=== PATIENT | female | born 1955 | race Caucasian/White ===

== ENCOUNTER → 2017-02-22 | Outpatient (CLI) | payer OTHER | LOC: RAD 16:18 | DX: M19.071 Primary osteoarthritis, right ankle and foot (principal) ==

== ENCOUNTER → 2017-03-22 | Outpatient (CLI) | payer OTHER | LOC: RAD 16:29 | DX: M79.671 Pain in right foot (principal) ==

== ENCOUNTER → 2017-04-05 | Outpatient (CLI) | payer OTHER | LOC: RAD 04:02 | DX: Z12.31 Encounter for screening mammogram for malignant neoplasm of breast (principal) ==

== ENCOUNTER → 2017-05-17 | Outpatient (CLI) | payer OTHER ==
[~2017-05-17] VITALS: Ht 165.1 cm; Wt 140.6 kg
[~2017-05-17] MED LIST: BUMETANIDE2 M1 PO; CLARITIN10 MG PO; ETODOLAC 400 M400 M1 PO; GLIPIZIDE 10 MG10 MG PO; GLUCOPHAGE1000 MG PO; KLOR-CON 1010 MEQ PO; LANTUS SUBQ; MAGNESIUM250 M1 PO; NEURONTIN600 MG PO; PLAVIX 75 MG TA75 M1 PO; PROAIR HFA8.5 GM; TOPAMAX50 MG PO; ZOCOR80 MG PO
[2017-05-17 08:39] VITALS: BP 129/69
== END ==
LOC: PAIN 03-29 07:12
DX: M54.2 Cervicalgia (principal); M25.872 Other specified joint disorders, left ankle and foot

== ENCOUNTER → 2017-06-20 | Outpatient (CLI) | payer OTHER ==
[~2017-06-20] VITALS: Ht 165.1 cm; Wt 142.9 kg
[~2017-06-20] MED LIST changes: -PROAIR HFA8.5 GM; +PROAIR HFA8.5 GM INH
--- NOTE | ~2017-06-20 | O ---
[facility] [place] [address] OPERATIVE REPORT Name: VICENTA HARDING Room #: REG [facility] Konstantin.#: [id number] Admission: 06/20/17 Attend Phys: Rober Coronel MD, Discharge: Date of : 51 Report #: [id number] THIS REPORT FOR: //name// CC: Kayla Coronel DATE OF SERVICE: 06/20/2017 PREOPERATIVE DIAGNOSES: 1. Indwelling lap band. 2. Dysphagia. 3. Gastroesophageal reflux disease. 4. Diabetes mellitus. 5. Hypertension. 6. Hypercholesterolemia. 7. Morbid obesity with a BMI of 52.49. POSTOPERATIVE DIAGNOSES: 1. Indwelling lap band. 2. Dysphagia. 3. Gastroesophageal reflux disease. 4. Diabetes mellitus. 5. Hypertension. 6. Hypercholesterolemia. 7. Morbid obesity with a BMI of 52.49. 8. A small hiatal hernia. 9. Mild esophagitis. 10. Observed malpositioning and slipping of indwelling lap band. PROCEDURE PERFORMED: Thorough esophagogastroduodenoscopy (EGD). SURGEON: Rober Coronel M.D. GARAGE DOOR INSTALLER: None. ANESTHESIA: Monitored anesthesia care. ESTIMATED BLOOD LOSS: None. COMPLICATIONS: None. SPECIMENS: None. INDICATIONS: The patient is a 61-year-old morbidly obese female who has undergone placement of a lap band in her past, whereby she had initial weight loss; however, has developed significant weight regain as well as the [facility] [place] [address] OPERATIVE REPORT Name: VICENTA HARDING Room #: REG [facility]..#: [id number] Admission: 06/20/17 Attend Phys: Rober Coronel MD, Discharge: Date of : 51 Report #: [id number] onset of dysphagia over the past several months. The patient's lap band is completely deflated and yet she continues with intermittent issues whereby she feels that she cannot swallow. Indication therefore was for EGD today with findings of a malpositioned lap band residing too cephalad as well as observed slipping and a small hiatal hernia. DESCRIPTION OF PROCEDURE: After explaining the risks, benefits and alternatives of the procedure with the patient and obtaining consent, the patient was brought to the endoscopy suite, placed in the left lateral decubitus position on the hospital bed. After conducting a thorough timeout procedure verifying correct patient and procedure, she was given monitored anesthesia care. Once adequate anesthesia was obtained, the [employer] upper endoscope was used to intubate the oropharynx. This was advanced into the esophagus with ease where it was traversed down past the gastroesophageal juncture and I had some difficulty navigating through the indwelling lap band. Ultimately, when I was able to arrive within the gastric lumen, I intubated the pylorus. The scope was advanced to the second portion of the duodenum where slow careful withdrawal of the EGD scope showed no evidence of duodenitis, gastritis, mass lesions or ulcerations. A retroflexion view of the scope within the gastric lumen showed a small hiatal hernia at the level of the gastroesophageal juncture and the extrinsic compression from the lap band was seen to reside too cephalad to where it was nearly on the gastroesophageal juncture. The patient did lighten from anesthesia during the course of the procedure on purpose and as such with abdominal contractions I was able to see craniocaudal movement of the lap band consistent with a slipping and malpositioned lap band. The scope was straightened out in the gastric lumen and was withdrawn into the distal esophagus where there was evidence of mild esophagitis, but no evidence of dysplasia was seen. Scope was reintubated into the gastric lumen where the stomach was fully desufflated and the scope was removed and passed off the field completing the procedure. At the end of the procedure all instrument, needle and sponge counts were correct. The patient tolerated the procedure without incident, was awakened in the endoscopy suite and transitioned to the recovery room in stable condition with no apparent complications. <ELECTRONICALLY SIGNED> By: Rober Coronel MD, FACS 06/20/17 1437 [id number] [id number] Rober Coronel MD, FACS /nt
== END | disposition home or self-care (01) ==
LOC: GI 06:35
DX: K95.09 Other complications of gastric band procedure (principal); K21.0 Gastro-esophageal reflux disease with esophagitis; E11.9 Type 2 diabetes mellitus without complications; I10 Essential (primary) hypertension; E78.00 Pure hypercholesterolemia, unspecified; E66.01 Morbid (severe) obesity due to excess calories; Z68.43 Body mass index [BMI] 50.0-59.9, adult; K44.9 Diaphragmatic hernia without obstruction or gangrene; E78.5 Hyperlipidemia, unspecified; G47.33 Obstructive sleep apnea (adult) (pediatric); J45.909 Unspecified asthma, uncomplicated; M79.7 Fibromyalgia; Z98.41 Cataract extraction status, right eye; Z79.899 Other long term (current) drug therapy; Z98.42 Cataract extraction status, left eye; Z98.890 Other specified postprocedural states

== ENCOUNTER → 2017-06-23 | Outpatient (CLI) | payer OTHER ==
[~2017-06-23] VITALS: Ht 165.1 cm; Wt 146.9 kg
[~2017-06-23] MED LIST changes: +FLEXERIL PO; +MOBIC15 MG PO
--- NOTE | ~2017-06-23 | HPC ---
[facility] [address] [place] [address] PAIN MANAGEMENT CONSULTATION Name: HARDINGVICENTA LOUIS Room #: REG [facility].#: [id number] Admission: 06/23/17 Attend Phys: Surinder Bansal MD Discharge: Date of : 51 Report #: [id number] THIS REPORT FOR: //name// CC: Kayla Bansal DATE OF SERVICE: 06/23/2017 FOLLOWUP COMPLAINT: Pain is a 5-6 across the low back today. FOLLOWUP HISTORY: The patient is a 61-year-old female who has been seen in the pain clinic because of low back pain. As you recall, she takes Plavix. She has been experiencing pain in the low back area after a fall. She noticed improvement after the last trigger point injections. She feels that another injection could be helpful. She also feels that physical therapy might be beneficial. She would like to undergo trigger point injections today and follow up with physical therapy. PHYSICAL EXAMINATION: Blood pressure 93/60, pulse 70, respiratory rate 20, room air saturation 97%. Height 5 feet 5 inches, weight 323 pounds. The patient has pain and discomfort in the left and right posterior superior iliac spine area near the posterior superior iliac area and junction of the gluteus almas and latissimus dorsi. IMPRESSION: 1. Myofascial pain in the low back area, status post fall. 2. Diabetes. 3. Obesity, BMI 51. 4. Anemia history. 5. Asthma. 6. Hypertension. 7. Degenerative joint disease/arthritis. RECOMMENDATIONS: We discussed the treatment options with the patient. She has not taken Plavix. She elects to proceed with a trigger point injection to the left and right posterior low back area near the posterior superior iliac spine. PROCEDURE NOTE: The patient was placed in the sitting position. Her back was sterilely prepped with a chlorhexidine solution and allowed to dry. A 22-gauge Chiba a needle was then advanced into the trigger point on the right. After the trigger point was elicited a total of 10 mL of 0.5% bupivacaine and 60 mg of triamcinolone was injected. The contralateral side was treated in a like fashion. A 20-gauge Chiba needle was advanced into the left posterior superior iliac spine area. A total of 60 mg of triamcinolone and 10 mL of 0.5% bupivacaine was injected. The patient's pain decreased from 6 to 3 at the time [address] [address] PAIN MANAGEMENT CONSULTATION Name: VICENTA HARDING HERIBERTO Room #: REG [facility] Ashley#: [id number] Admission: 06/23/17 Attend Phys: Surinder Bansal MD Discharge: Date of : 51 Report #: [id number] of discharge. She will follow up in the future as needed. She will restart her Plavix. We would like to thank you for letting us participate in her care. We hope she continues to improve. By: 1811 [id number] Surinder Bansal MD /CLARK
[2017-06-23 10:44] VITALS: BP 93/60
== END | disposition home or self-care (01) ==
LOC: PAIN 06:47
DX: M79.1 Myalgia (principal); E11.9 Type 2 diabetes mellitus without complications; I10 Essential (primary) hypertension; E66.09 Other obesity due to excess calories; J45.909 Unspecified asthma, uncomplicated; M19.90 Unspecified osteoarthritis, unspecified site; Z86.2 Personal history of diseases of the blood and blood-forming organs and certain disorders involving the immune mechanism; Z68.43 Body mass index [BMI] 50.0-59.9, adult; Z98.890 Other specified postprocedural states; Z79.899 Other long term (current) drug therapy; Z88.0 Allergy status to penicillin; Z88.6 Allergy status to analgesic agent; Z79.4 Long term (current) use of insulin

== ENCOUNTER 2017-07-28 05:36 | Day surgery (SDC) | payer OTHER ==
[~2017-07-28] VITALS: Ht 165.1 cm; Wt 141.5 kg
--- NOTE | ~2017-07-28 | EKG ---
[address] [address] ELECTROCARDIOGRAM REPORT Name: VICENTA HARDING Room #: 410-P [facility].#: [id number] Admission: 07/28/17 Attend Phys: Rober Coronel MD, Discharge: Date of : 51 Report #: [id number] THIS REPORT FOR: //name// [facility] Test Date: 2017-07-28 Test Time: 09:44:38 Pat Name: VICENTA HARDING Department: Room: 150 4 Gender: F Inbound Customer Service Representative: ETHEL : 1955 Requested By: Rober Coronel Order Number: [id number] MD: Milton Reeves Measurements Intervals [place] Rate: 79 P: 24 MI: 158 QRS: 32 QRSD: 82 T: 29 QT: 399 QTc: 458 Interpretive Statements Sinus rhythm Compared to ECG 12/28/1999 09:19:54 T-wave abnormality no longer present Electronically Signed On 07-29-2017 8:22:35 MANAGER APPLICATION by Milton Reeves [email or web address] <ELECTRONICALLY SIGNED> By: Milton Reeves MD 07/29/17821 Milton Reeves MD /GEETA
--- NOTE | ~2017-07-28 | S ---
[facility] [place] [address] SURGICAL PATH RPT PROCEDURE Name: JULIANE HUI Room #: DEP [facility] Konstantin.#: [id number] Admission: 07/28/17 Date of : 51 Discharge: 07/29/17 Report #: [id number] Path Case #: [id number] PATHOLOGY REPORT COLLECTION DATE: 07/28/2017 RECEIVED DATE: 07/28/2017 SUBMITTING PHYS: Dr. Rober Coronel OTHER PHYS: Dr. Walt Dunaway SPECIMEN(S) RECEIVED: A.Gastric band and port B.Gastric sleeve * * * * * * * * * * * * FINAL DIAGNOSIS: A. "Gastric band and port", removal: - Foreign body consistent with gastric band (gross examination only). - Foreign body consistent with port (gross examination only). - Attached fibrous connective tissue with chronic inflammation. B. "Gastric sleeve", partial gastrectomy: - Gastric mucosa, submucosa and muscular wall with minimal histologic alterations. (CLW:daly; 07/31/2017) PATHOLOGIST: Simona Arshad M.D. REPORT ELECTRONICALLY SIGNED BY: Simona Arshad M.D. DATE/TIME: 07/31/2017 17:03 * * * * * * * * * * * * GROSS PATHOLOGY: A. The specimen is received in formalin, labeled "Juliane Hui and gastric band and port", is a triangular white port at one end 3.0 x 1.5 cm with attached white tubing 42 cm in length with a 0.3 cm diameter, and the opposite end consists of a lap band and inscribed "[facility]". The back of the port is inscribed with "Port-A-Cath" and "M [id number]". There is a 0.5 x 0.4 x 0.3 cm attached yellow-correia fibrous tissue that is entirely submitted in A1. Photographs are taken. B. The specimen is received in formalin, labeled "Juliane Hui and gastric sleeve", is a partial stomach with a staple line margin the specimen measures 23 x 3.5 x 2.5 cm. The serosal surface is correia-white smooth. Opening the segment reveals a correia-red grossly unremarkable mucosa with usual folds and in no discrete lesions or masses. Careers Counsellor sections in B1. (SWS; 07/31/2017) [address] [address] SURGICAL PATH RPT PROCEDURE Name: HUIJULIANE Room #: DEP [facility] Ashley#: [id number] Admission: 07/28/17 Date of : 51 Discharge: 07/29/17 Report #: [id number] Path Case #: [id number] CLINICAL HISTORY: None Provided INITIAL CPT CODE(S): A; 11007, 45589 B; 21579 Professional services performed by [facility] at [address] , [place] [address] Technical services performed by [facility] at [address] [place] [address]., [address], [place] [address]. Kayla Sin [facility] [address] [address] PHONE: [phone] DIRECTOR: Reece Medina M.D. * * * END OF REPORT * * *
--- NOTE | ~2017-07-28 | O ---
[facility] [place] [address] OPERATIVE REPORT Name: VICENTA HARDING Room #: DEP [facility] M.R.#: [id number] Admission: 07/28/17 Attend Phys: Rober Coronel MD, Discharge: 07/29/17 Date of : 51 Report #: [id number] THIS REPORT FOR: //name// CC: Kayla Coronel DATE OF SERVICE: 07/28/2017 PREOPERATIVE DIAGNOSES: 1. Morbid obesity with a body mass index of 52.35. 2. Indwelling laparoscopic band. 3. Dysphagia. 4. Diabetes mellitus. 5. Hypertension. 6. Gastroesophageal reflux disease. 7. Hypercholesterolemia. 8. Lumbago. 9. Bilateral lower extremity joint pain. 10. Snoring disorder with likely sleep apnea. 11. Chronic fatigue. POSTOPERATIVE DIAGNOSES: 1. Morbid obesity with a body mass index of 52.35. 2. Indwelling laparoscopic band. 3. Dysphagia. 4. Diabetes mellitus. 5. Hypertension. 6. Gastroesophageal reflux disease. 7. Hypercholesterolemia. 8. Lumbago. 9. Bilateral lower extremity joint pain. 10. Snoring disorder with likely sleep apnea. 11. Chronic fatigue. 12. Marked intra-abdominal adhesions. 13. Incarcerated incisional ventral hernia. PROCEDURES PERFORMED: 1. Laparoscopic removal of adjustable gastric band and port. 2. Extensive laparoscopic lysis of adhesions. 3. Laparoscopic sleeve gastrectomy. 4. Laparoscopic primary suture repair of an incarcerated incisional ventral hernia. 5. A thorough esophagogastroduodenoscopy (EGD). SURGEON: Rober Coronel MD [facility] [address] [place] [address] OPERATIVE REPORT Name: VICENTA HARDING Room #: DEP [facility]..#: [id number] Admission: 07/28/17 Attend Phys: Rober Coronel MD, Discharge: 07/29/17 Date of : 51 Report #: [id number] BORDER PATROL OFFICER: Walt Dunaway MD ANESTHESIA: General endotracheal anesthesia. ESTIMATED BLOOD LOSS: 100. COMPLICATIONS: None appreciated. SPECIMENS: 1. Lap band and port to pathology. 2. Laparoscopic gastric sleeve resection specimen to pathology. INDICATIONS: The patient is a 62-year-old morbidly obese female who underwent placement of a lap band in the past and initially had good weight loss; however, over the recent past, has had weight regain and worsening dysphagia over the past several months. The patient has had a very long history of obesity and has tried numerous weight loss attempts, all to no avail. The patient underwent an EGD showing a malpositioned lap band with mild esophagitis. She has been evaluated by her primary care physician as well as a dietitian and a psychologist who have all cleared her for revisional bariatric surgery as well as indicating that it is medically necessary for long-term weight loss and resolution of her comorbid conditions. She has undergone several months of diet and exercise plan under my direction with no real weight loss thus far. As such, indication was for the above-mentioned procedures today. PROCEDURE: After explaining the risks, benefits and alternatives of the procedure with the patient in detail in the preoperative holding area and obtaining written consent, the patient was brought to the operating room and placed supine on the operating room table. After conducting a thorough timeout procedure, verifying correct patient and procedure, the patient was given general endotracheal anesthesia. Once adequate anesthesia was obtained, her SCDs were hooked up to pneumatic compression device and she was given a preoperative dose of antibiotics in line with her SCIP protocol. The patient's abdomen was prepped and draped in standard surgical sterile fashion after positioning her in the low lithotomy position with her legs in the Yellofin stirrups. 5 mL of 0.5% Marcaine with epinephrine were used to anesthetize the skin 5 cm cephalad to the umbilicus and 1 cm to the patient's left. A #15 bladed scalpel was used to create a small skin marielena at this location. A 5-mm Visiport was placed over 0-degree 5-mm laparoscope and was introduced through this incision site. Once intra-abdominal placement was verified visually, the obturator for the trocar and laparoscope were both removed and the abdomen was insufflated to 15 mmHg using carbon dioxide gas. The laparoscope was changed to a 5-mm 30-degree laparoscope, which was reintroduced through this trocar. The entire abdomen was evaluated to ensure no injury upon entry. I now proceeded to place a 15 mm trocar in the right upper abdomen 5 cm cephalad to my original incision site as well as 5 cm of the patient's right. This was placed under [address] [address] OPERATIVE REPORT Name: VICENTA HARDING HERIBERTO Room #: DEP [facility] Ashley#: [id number] Admission: 07/28/17 Attend Phys: Rober Coronel MD, Discharge: 07/29/17 Date of : 51 Report #: [id number] direct vision after anesthetizing the skin at that location with 5 mL of 0.5% Marcaine with epinephrine and I had created a 1.5 cm transverse skin incision using a #15 bladed scalpel. I now proceeded to place two additional 5-mm trocars in the left flank, the first being 5-cm lateral to my initially placed port and the final one in the extreme left lateral flank. Again, both were placed under direct vision after anesthetizing the skin at each location with 5 mL of 0.5% Marcaine with epinephrine and I had created small skin nicks using a #15 bladed scalpel. The patient was now placed in steep reverse Trendelenburg position and I proceeded to place a Jada liver retractor in subxiphoid location. This was placed by anesthetizing the skin at that location with 5 mL of 0.5% Marcaine with epinephrine and I had created a small skin marielena using a #15 bladed scalpel. I maneuvered the Jada retractor through this defect where it was positioned up under the left lobe of the liver and was held up against the posterior aspect of the anterior abdominal wall. This was then fixed into position using the iron purchasing internship device to stabilize it. We now had complete access to the stomach and hiatal region including the lap band, which was malrotated with the tubing coming off anterior as well as plastered to the underside of the left lobe of the liver. We now carried out an extensive laparoscopic lysis of adhesions using a combination of Harmonic scalpel and EndoShears dissection. Ultimately, we were able to free the caudate lobe of the liver as well as the entire esophageal hiatus from the lap band scarring. I was able to reposition the Jada under the entire left lobe of the liver for further exposure. Once I had opened the scar capsule around the lap band on the anterior aspect, I was able to unbuckle the lap band itself. I then used EndoShears to cut the lap band on the left lateral aspect and removed both pieces in full after disconnecting the tubing from the port and the lap band itself. Both pieces were then passed off the field leaving just the port in the abdominal wall. I now proceeded to evaluate the gastric tissues. It appeared that the plication sutures had largely come down and that she would be amenable to immediate conversion to a sleeve gastrectomy without risk of increased leak. As such, I proceeded to start my dissection after identifying our landmarks. The vein of Sharif was identified overlying the pylorus. I measured 4-cm proximal to this location and began taking down the short gastric arteries from this location all the way up the greater curvature of the stomach using the Harmonic scalpel for hemostasis. Once I arrived upon the base of the left jody, I dissected anteriorly up the left jody with the Harmonic scalpel for hemostasis coming through significant scar as there appeared to be several sutures of Surgidac tethered in this region. Upon dissecting the greater curvature of the stomach near the left jody, there was evidence of bleeding short gastric artery, which was controlled with laparoscopic clips and Surgicel. The stomach was now flattened out and all gastric anatomy was normalized by taking down the entire lap band tract staying well away from the gastric tissues. Now that I had fully mobilized the stomach, it was elevated and all posterior gastric attachments were taken down again being careful to stay well away from the gastric wall in the anterior aspect of the pancreas. We now positioned the EGD scope using the Lionseekn upper endoscope, I was able to intubate the oropharynx and traverse this [facility] [address] [place] [address] OPERATIVE REPORT Name: MEAGHANVICENTASENTHIL LOUIS Room #: DEP [facility] Ashley#: [id number] Admission: 07/28/17 Attend Phys: Rober Coronel MD, Discharge: 07/29/17 Date of : 51 Report #: [id number] down to the esophagus with ease. This was advanced into the stomach at the level of the pylorus where a retroflexion view was obtained showing no evidence of extrinsic compression and no hiatal hernia. The scope was straightened out with its tip at the level of pylorus, it was positioned to run along the lesser curvature of the stomach and was taped into position with the OG tube removed. I now sterilely reenter the operative field once again. The Deloit 60 mm stapler with a black load utilizing Berumen's Nereida-Strip buttressing material placed over, it was entered into the abdomen through the 15-mm port. This first firing started at the location 4-cm proximal to the pylorus and fired right along, but not extremely tight to the scope, so as not to cause stricturing, especially at the incisura. An additional firing of another black load again utilizing Berumen's Nereida-Strip buttressing material was carried out following the scope as a 34-German bougie. Five firings all of green loads all utilizing Berumen's Nereida-Strip buttressing material were carried out following the scope as a bougie all the way up to the left jody until the stomach was completely transected. The resection specimen was now removed via the 15-mm fascial incision under direct vision and I proceeded to place a fascial closing suture at this location using 0 PDS suture on a Uriah-Inocencia needle under direct vision. This was not tied down, but was tagged with a hemostat and the trocars were placed under direct vision. The staple line was now evaluated. We had complete hemostasis with no evidence of twisting to the sleeve and no oozing from the staple line itself. The left upper quadrant was dry at this juncture with no evidence of ongoing bleeding. I now proceeded to utilize 20 mL of Tisseel on the [employer] device to coat the entirety of the staple line with fibrin glue. Once completely dry, normal saline was instilled into the upper abdomen, the EGD scope was reactivated and gently withdrawn evaluating the staple line from the inside. We saw no evidence of bleeding endoluminally and allowing gentle insufflation, which was then held under the normal saline in the upper abdomen, we saw no evidence of bubbling, thereby signifying a negative leak test. The EGD scope was used to desufflate the stomach, was removed via the oropharynx, passed off the field and I sterilely reentered the operative field once again. All normal saline was suctioned out of the abdomen and it ran clear at this juncture with no swelling and no bleeding. As the Surgicel was placed in the left upper quadrant, I did elect to leave this in place rather than peel it out and start bleeding once again. Now that it was dry in this juncture, I did elect to place FloSeal overlying the Surgicel for assistance with long-term hemostasis. The Jada liver retractor was now removed and the liver was healthy and uninjured. I now closed the 15-mm fascial incision by tying down the suture under direct vision to ensure I did not catch a loop of bowel or omentum in the suture repair. The abdomen was fully desufflated, all remaining trocars were removed under direct vision. I now proceeded to utilize 10 mL of 0.5% Marcaine with epinephrine to inject overlying the port. A #15 bladed scalpel was used to create a 3-cm transverse skin incision at this location. Electrocautery was used to carry this down through skin, subcutaneous tissues and fat until I arrived upon the anterior aspect of the capsule of the lap band port. I was able to free this through dissection and removed the [facility] [address] [place] [address] OPERATIVE REPORT Name: VICENTA HARDING Room #: [facility] M.R.#: [id number] Admission: 07/28/17 Attend Phys: Rober Coronel MD, Discharge: 07/29/17 Date of : 51 Report #: [id number] entire port, passed it off the field. 0 PDS suture was now used in a cujgzp-pa-[id number] fashion to close the fascial defect where the port traversed intraabdominally. It should be noted that upon dissecting, we saw evidence of an incarcerated band of omentum in the abdomen at a site separate to any of our incision sites and upon performing the lysis of adhesions, uncovered an incarcerated incisional hernia. This was sutured closed intracorporeally using the 0 PDS suture and was tied down removing the needle in full, which was then used to close the anterior rectus fascial defect after port explantation. A 4-0 Monocryl was now used in a standard subcuticular fashion for all skin incisions and Dermabond glue was applied to all skin wounds. The corner of the resection specimen had been removed, was trimmed away and normal saline was passively instilled into the resection specimen yielding 1400 mL in the resection specimen itself. At the end of the procedure, all instrument, needle, and sponge counts were correct. The patient tolerated the procedure without incident, was awakened in the operating room and transitioned to the recovery room in stable condition with no apparent complications. <ELECTRONICALLY SIGNED> By: Rober Coronel MD, FACS 07/31/17 0810 1509 1735 Rober Coronel MD, FACS /nt
[2017-07-28 09:45] VITALS: BP 119/89
[2017-07-28 10:26] LABS: CALCIUM 9.8 mg/dL (8.5-10.1); CREATININE 1.1 mg/dL (0.6-1.0); POTASSIUM 3.2 mmol/L (3.5-5.1)
[2017-07-28] MEDS ORDERED: ZOFRAN ODT4 MG DISSOLVE (13:22)
[2017-07-28] MEDS ORDERED: HYDROCODONE-ACE15 ML PO (13:22)
[2017-07-28 16:30] VITALS: BP 171/60
[2017-07-28 17:00] VITALS: BP 151/55
[2017-07-28 18:00] VITALS: BP 161/60
[2017-07-28 19:00] VITALS: BP 142/61
[2017-07-28 20:45] VITALS: BP 152/62
[2017-07-29 00:12] VITALS: BP 143/53
[2017-07-29 03:40] LABS: HEMATOCRIT 40.1 % (37.0-47.0); HEMOGLOBIN 13.2 gm/dL (12.0-15.0); MCH 29.7 pg (26.0-34.0); MCHC 32.9 g/dL (28.0-37.0); MCV 90.4 fL (80.0-100.0); RBC 4.43 mil/uL (4.20-5.00); RDW 13.8 % (10.5-14.5); WBC 14.7 thou/uL (4.0-11.0)
[2017-07-29 03:48] LABS: CALCIUM 8.8 mg/dL (8.5-10.1); CREATININE 1.5 mg/dL (0.6-1.0)
[2017-07-29 03:53] LABS: POTASSIUM 4.4 mmol/L (3.5-5.1)
[2017-07-29 05:30] VITALS: BP 146/64
[2017-07-29 08:00] VITALS: BP 141/68
[2017-07-29 11:47] VITALS: BP 141/68
== END 2017-07-29 13:09 | disposition home or self-care (01) ==
LOC: OR 05:36 → TBA 05:36 → OR 10:24 → 4N 16:09 → OR 07-29 13:09
PROVIDERS: Surgery
DX: E66.01 Morbid (severe) obesity due to excess calories (principal); Z68.43 Body mass index [BMI] 50.0-59.9, adult; E11.9 Type 2 diabetes mellitus without complications; I10 Essential (primary) hypertension; K21.9 Gastro-esophageal reflux disease without esophagitis; E78.00 Pure hypercholesterolemia, unspecified; M54.5 Low back pain; R06.83 Snoring; K43.6 Other and unspecified ventral hernia with obstruction, without gangrene; J45.909 Unspecified asthma, uncomplicated; E78.5 Hyperlipidemia, unspecified; M79.7 Fibromyalgia
CPT/HCPCS: 50010; 50101; 50222; 50249; 50386; 50555; 50739; 50740; 50900; 50962; 51297; 51437; 51489; 51751; 52182; 52265; 53307; 53311; 54022; 54118; 55245; 56462; 56525; 56526; 56639; 57092; 62110; 62900; 70005

== ENCOUNTER → 2017-09-25 | Outpatient (CLI) | payer OTHER ==
[~2017-09-25] MED LIST changes: +HYDROCODONE-ACE15 ML PO; +ZOFRAN ODT4 MG DISSOLVE
== END ==
LOC: HYPER 07:11
DX: T21.32XA Burn of third degree of abdominal wall, initial encounter (principal); T32 Corrosions classified according to extent of body surface involved; E11.9 Type 2 diabetes mellitus without complications; I10 Essential (primary) hypertension; M19.90 Unspecified osteoarthritis, unspecified site; K21.9 Gastro-esophageal reflux disease without esophagitis; J45.909 Unspecified asthma, uncomplicated; Z98.41 Cataract extraction status, right eye; X16.XXXA Contact with hot heating appliances, radiators and pipes, initial encounter; Y93.89 Activity, other specified; Y92.89 Other specified places as the place of occurrence of the external cause; Y99.8 Other external cause status

== ENCOUNTER → 2017-10-19 | Outpatient (CLI) | payer OTHER | LOC: HYPER 10-09 07:08 | DX: T21.32XD Burn of third degree of abdominal wall, subsequent encounter (principal); T32 Corrosions classified according to extent of body surface involved; E11.65 Type 2 diabetes mellitus with hyperglycemia; L03.116 Cellulitis of left lower limb; I10 Essential (primary) hypertension; M19.90 Unspecified osteoarthritis, unspecified site; K21.9 Gastro-esophageal reflux disease without esophagitis; J45.909 Unspecified asthma, uncomplicated; X08.8XXD Exposure to other specified smoke, fire and flames, subsequent encounter ==

== ENCOUNTER → 2019-02-27 | Outpatient (CLI) | payer OTHER | LOC: RAD 09:11 | DX: Z12.31 Encounter for screening mammogram for malignant neoplasm of breast (principal) ==

== ENCOUNTER → 2020-03-11 | Outpatient (CLI) | payer OTHER ==
[2020-03-11 14:21] LABS: ALBUMIN 3.6 g/dL (3.4-5.0); CALCIUM 8.7 mg/dL (8.5-10.1); CREATININE 1.3 mg/dL (0.6-1.0); POTASSIUM 4.9 mmol/L (3.5-5.1); TOTAL BILIRUBIN 0.3 mg/dL (0.2-1.0)
[2020-03-12 04:06] LABS: GLYCOHEMOGLOBIN (HGB A1C) 7.2 % (4.8-5.6)
== END ==
LOC: LABMALL 13:46
PROVIDERS: ATTEND Family Medicine
DX: E11.40 Type 2 diabetes mellitus with diabetic neuropathy, unspecified (principal)

== ENCOUNTER → 2020-07-09 | Outpatient (CLI) | payer OTHER ==
[2020-07-09 12:28] LABS: ABSOLUTE NEUTROPHILS 4.7 thou/uL (1.4-8.2); BASOPHILS 0.9 % (0.0-2.0); EOSINOPHILS 4.7 % (0.0-3.0); HEMATOCRIT 41.2 % (37.0-47.0); HEMOGLOBIN 13.5 gm/dL (12.0-15.0); LYMPHOCYTES 27.4 % (24.0-44.0); MCH 29.2 pg (26.0-34.0); MCHC 32.6 g/dL (28.0-37.0); MCV 89.6 fL (80.0-100.0); MONOCYTES 5.7 % (1.0-8.0); PLATELET COUNT 294 thou/uL (150-400); POLYS 61.3 % (36.0-66.0); RDW 12.8 % (10.5-14.5); WBC 7.7 thou/uL (4.0-11.0)
[2020-07-09 12:50] LABS: ALBUMIN 3.3 g/dL (3.4-5.0); ANION GAP 10 mmol/L (7-16); BUN 19 mg/dL (7-18); CALCIUM 9.3 mg/dL (8.5-10.1); CHLORIDE 104 mmol/L (98-107); CHOLESTEROL 196 mg/dL (<200); CO2 29 mmol/L (21-32); GLUCOSE 130 mg/dL (74-106); HDL CHOLESTEROL 65 mg/dL (>40); LDL CHOLESTEROL 118 mg/dL (<100); POTASSIUM 3.9 mmol/L (3.5-5.1); SGOT 18 U/L (15-37); SGPT 21 U/L (30-65); SODIUM 143 mmol/L (136-145); TOTAL BILIRUBIN 0.3 mg/dL (0.2-1.0); TOTAL PROTEIN 6.9 g/dL (6.4-8.2); TRIGLYCERIDE 66 mg/dL (<150); VLDL 13 mg/dL (<40)
[2020-07-10 02:07] LABS: GLYCOHEMOGLOBIN (HGB A1C) 7.6 % (4.8-5.6)
== END ==
LOC: LAB 11:52
PROVIDERS: ATTEND Family Medicine
DX: E11.9 Type 2 diabetes mellitus without complications (principal)

== ENCOUNTER → 2020-11-25 | Outpatient (CLI) | payer OTHER ==
[2020-11-25 09:42] LABS: ANION GAP 7 mmol/L (7-16); BUN 13 mg/dL (7-18); CALCIUM 8.9 mg/dL (8.5-10.1); CHLORIDE 109 mmol/L (98-107); CHOLESTEROL 193 mg/dL (<200); CO2 30 mmol/L (21-32); GLUCOSE 106 mg/dL (74-106); HDL CHOLESTEROL 71 mg/dL (>40); LDL CHOLESTEROL 105 mg/dL (<100); POTASSIUM 4.4 mmol/L (3.5-5.1); SGOT 21 U/L (15-37); SGPT 16 U/L (30-65); SODIUM 146 mmol/L (136-145); TC:HDL 2.7 Ratio (Not establshd); TOTAL BILIRUBIN 0.5 mg/dL (0.2-1.0); TOTAL PROTEIN 6.9 g/dL (6.4-8.2); TRIGLYCERIDE 88 mg/dL (<150); VLDL 18 mg/dL (<40)
[2020-11-26 00:06] LABS: GLYCOHEMOGLOBIN (HGB A1C) 7.2 % (4.8-5.6)
== END ==
LOC: LAB 08:16
PROVIDERS: ATTEND Family Medicine
DX: E11.9 Type 2 diabetes mellitus without complications (principal)

== ENCOUNTER → 2020-12-03 | Outpatient (CLI) | payer OTHER | LOC: ULTRA 09:27 | PROVIDERS: ATTEND Family Medicine | DX: K82.4 Cholesterolosis of gallbladder (principal); N20.0 Calculus of kidney; R10.11 Right upper quadrant pain; R16.0 Hepatomegaly, not elsewhere classified ==

== ENCOUNTER 2021-01-01 06:04 | Day surgery (SDC) | payer OTHER ==
[~2021-01-01] VITALS: Ht 165.1 cm; Wt 108.9 kg
[~2021-01-01 06:04] MED LIST changes: +ASA81BEC PO; +AZELASTINE137 MCG/0. NASAL; +B COMPLEX1 EACH PO; +IRBESARTAN150 MG PO; +TRULICITY1.5 MG/0.5 SUBQ
[2021-01-01 06:33] LABS: HEMATOCRIT 43.2 % (37.0-47.0); HEMOGLOBIN 14.3 gm/dL (12.0-15.0)
[2021-01-01 06:56] VITALS: BP 155/62
--- NOTE | 2021-01-01 07:06 | EKG ---
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
[2021-01-01 09:31] VITALS: BP 155/62
--- NOTE | 2021-01-04 10:27 | O ---
[facility] [place] [address] OPERATIVE REPORT Name: VICENTA HARDING Room #: DEP [facility] M.R.#: [id number] Admission: 01/01/21 Attend Phys: Rober Coronel MD, Discharge: 01/01/21 Date of : 51 Report #: [id number] THIS REPORT FOR: cc: Harjit Sanchez Gregg R. DO Soliman, Mohsin Q. MD [facility] DOC #: [id number] Rober Coronel MD DATE OF SERVICE: 01/01/2021 PREOPERATIVE DIAGNOSIS: Biliary colic. POSTOPERATIVE DIAGNOSIS: 1. Chronic cholecystitis with cholesterolosis. 2. Cholelithiasis. PROCEDURE PERFORMED: Laparoscopic cholecystectomy with intraoperative cholangiogram. SURGEON: Rober Coronel MD INVENTORY ASSISTANT: MARIA DEL CARMEN Maitas ANESTHESIA: General endotracheal anesthesia. ESTIMATED BLOOD LOSS: Minimal (less than 5 mL). COMPLICATIONS : None appreciated. SPECIMENS: Gallbladder to pathology. INDICATIONS: The patient is a 65-year-old obese female who has undergone previous bariatric surgery and as of late has been having extreme postprandial right upper quadrant abdominal pain, nausea and bloating. After thorough consultation with the patient and appropriate imaging, indication was for the above-mentioned procedure today. DESCRIPTION OF PROCEDURE: After explaining the risks, benefits and alternatives of the procedure with the patient in detail in the preoperative holding area and obtaining consent, the patient was brought to the operating room and placed supine on the operating room table. After conducting a thorough timeout procedure, verifying correct patient and procedure, the patient was given general endotracheal anesthesia. Once adequate anesthesia was obtained, her SCDs were hooked up to pneumatic compression devices. She was given a preoperative dose of antibiotics in line with the SCIP protocol. The patient's abdomen was prepped and draped in standard surgical sterile fashion. A [address] [address] OPERATIVE REPORT Name: VICENTA HARDING HERIBERTO Room #: DEP [facility].Etelvina#: [id number] Admission: 01/01/21 Attend Phys: Rober Coronel MD, Discharge: 01/01/21 Date of : 51 Report #: [id number] 0.5% Marcaine with epinephrine were used to anesthetize the skin in the supraumbilical location approximately 5 cm cephalad to the umbilicus as she does have an extremely large abdomen. A #15 bladed scalpel was used to create a 1 cm transverse skin incision at this location. An 11 mm Visiport was placed over 0-degree 5 mm laparoscope was introduced through this incision site. Once intra-abdominal placement was verified visually, the obturator with trocar and laparoscope were both removed and the abdomen was insufflated to 15 mmHg using carbon dioxide gas. The laparoscope was changed to a 5 mm 30-degree laparoscope which was reintroduced through this trocar. The entire abdomen was evaluated to ensure no injury upon entry. The patient was now placed in steep reverse Trendelenburg position with the right side, elevated, and I proceeded to place three additional 5 mm ports in the upper abdomen in standard fashion under direct vision. Using the inferolateral most port along the patient's right flank, the fundus of the gallbladder was grasped and retracted cephalad. Careful tedious dissection was undertaken down around the cholecystocystic junction using a combination of Harmonic scalpel and [place] dissector. Once I had attained a critical view, namely the cystic duct emanating from the infundibulum of the gallbladder and coursing the common bile duct as well as cystic artery running to the surface of the gallbladder and I had created a window behind each, I transected the cystic artery nearest to the gallbladder side using Harmonic scalpel for hemostasis. A single clip was now placed along the cystic duct nearest to gallbladder side and a small ductotomy was made just distal to this clip using EndoShears. This ductotomy was cannulated using the taut cholangiocatheter setup and an intraoperative cholangiogram was obtained. We had prompt opacification of the cystic duct with both intra and extrahepatic bile ducts becoming opacified. There was antegrade flow of contrast in the duodenum with no evidence of filling defects or obstruction. The cholangiocatheter set was removed. Three clips were placed along the cystic duct nearest to the common bile duct side and was transected above these clips using Harmonic scalpel to help seal the end of the duct closed. Further retraction at the infundibulum of the gallbladder in cephalad direction allowed me to elevate the gallbladder off the liver bed using Harmonic scalpel for hemostasis. Once completely detached, the laparoscope was removed. Change of the right midclavicular 5 mm port and the EndoCatch bag was placed in the supraumbilical trocar. The specimen was placed within it under direct vision. The pursestring suture was drawn, and the specimen was removed from the abdomen under direct vision. The gallbladder fossa was evaluated. We had complete hemostasis with no evidence of spillage. The clips were seated nicely on the cystic duct stump remnant. I now closed the supraumbilical fascial incision using 0 PDS suture on the Uriah-Inocencia suture passer device to place two zcfmvv-fq-kciub sutures under direct vision. These were tied down under direct vision as well to ensure I did not catch a loop of bowel or omentum to the suture repair. Final evaluation of the intra-abdominal domain showed no further evidence of pathology. The abdomen was desufflated. All trocars were removed under direct vision. A 4-0 Monocryl was used in a standard subcuticular fashion [address] [address] OPERATIVE REPORT Name: VICENTA HARDING HERIBERTO Room #: DEP [facility]..#: [id number] Admission: 01/01/21 Attend Phys: Rober Coronel MD, Discharge: 01/01/21 Date of : 51 Report #: [id number] for all skin incisions and Dermabond glue was applied to all skin wounds. The gallbladder was opened on the back table showing significant findings of cholesterolosis consistent with chronic cholecystitis and sludge and stones, but no other pathologic findings were identified. At the end of the procedure, all instrument, needle and sponge counts were correct. The patient tolerated the procedure without incident, was awakened in the operating room and transitioned to the recovery room in stable condition with no apparent complications. Rober Coronel MD MQS/KDA <ELECTRONICALLY SIGNED> By: Rober Coronel MD, FACS 01/04/21 1027 0825 0851 Rober Coronel MD, FACS /nt
--- NOTE | 2021-01-05 19:07 | PATH ---
[facility] [address] [place] [address] PATHOLOGY RPT PROCEDURE Name: JULIANE HUI HERIBERTO Room #: DEP [facility] M.R.#: [id number] Admission: 01/01/21 Date of : 51 Discharge: 01/01/21 Report #: [id number] Path Case #: [id number] [facility] Accession Number: [id number] . 01 Material submitted: . gallbladder - GALLBLADDER . 01 Clinical history: . LAPAROSCOPIC CHELCYSTECTOMY WITH G BILATERAL COLIC . 02 Diagnosis: Gallbladder, cholecystectomy: - Mild chronic cholecystitis. (IUV:daly; 01/05/2021) S 01/05/2021 1456 Local . 02 Electronically signed: . Ann-Marie Sibley MD, Pathologist NPI- [id number] . 01 Gross description: . The specimen is received in formalin, labeled "Juliane Hui", "gallbladder". Received is a previously opened gallbladder measuring 8.2 x 3.8 x 1.4 cm. The serosal surface is wrinkled, shiny and pale turner-pale green. The gallbladder is opened to show a green, velvety, bile-stained mucosa with no polypoid adhesions or solid mass is identified. The gallbladder wall measures 0.1 cm in thickness. No calculi are identified within the gallbladder or container. Gravel Inspector sections are submitted in cassette A1.([facility]; 01/03/2021) SEKOU/KAYA 01/03/2021 1043 Local . 02 Pathologist provided ICD-10: K81.1 . 02 CPT . 563647 Specimen Comment: A courtesy copy of this report has been sent to [phone] Specimen Comment: [phone] Specimen Comment: Report sent to / DR CARDENAS Performed at: [address] [id number] MD Arthur Brunson MD Phone: [phone] Performed at: [address] [address] PATHOLOGY RPT PROCEDURE Name: JULIANE HUI HERIBERTO Room #: DEP [facility] M.RDulce#: [id number] Admission: 01/01/21 Date of : 51 Discharge: 01/01/21 Report #: [id number] Path Case #: [id number] [address] [place], [place] [id number] MD Ann-Marie Sibley MD Phone: [phone]
== END 2021-01-01 10:10 | disposition home or self-care (01) ==
LOC: OR 06:04 → TBA 06:07 → OR 10:10
PROVIDERS: ATTEND Surgery
DX: K81.1 Chronic cholecystitis (principal); J45.909 Unspecified asthma, uncomplicated; I10 Essential (primary) hypertension; E78.5 Hyperlipidemia, unspecified; E11.9 Type 2 diabetes mellitus without complications; M79.7 Fibromyalgia; Z98.890 Other specified postprocedural states; Z79.899 Other long term (current) drug therapy; Z98.41 Cataract extraction status, right eye; Z98.84 Bariatric surgery status; Z98.42 Cataract extraction status, left eye; Z88.0 Allergy status to penicillin; Z88.8 Allergy status to other drugs, medicaments and biological substances; Z79.4 Long term (current) use of insulin
CPT/HCPCS: 50010; 50101; 50411; 50555; 50558; 50962; 51975; 52265; 53307; 54022; 54118; 55245; 55317; 56462; 56525; 56526; 58574; 62110; 62900; 70005

== ENCOUNTER → 2021-03-05 | Outpatient (CLI) | payer OTHER ==
[2021-03-05 12:37] LABS: % SATURATION 25 % (20-39); IRON 67 ug/dL (50-170); TIBC 269 ug/dL (250-450)
[2021-03-05 13:04] LABS: FOLIC ACID 15.7 ng/mL (8.6-58.9)
== END ==
LOC: LAB 09:55
PROVIDERS: ATTEND Family Medicine
DX: E11.9 Type 2 diabetes mellitus without complications (principal); Z98.890 Other specified postprocedural states

== ENCOUNTER → 2021-07-14 | Outpatient (CLI) | payer OTHER | LOC: LAB 09:23 | PROVIDERS: ATTEND Family Medicine | DX: E11.9 Type 2 diabetes mellitus without complications (principal) ==